=== PATIENT | female | born 1940 | race Caucasian/White ===

== ENCOUNTER 2019-08-12 05:00 | Day surgery (SDC) | payer OTHER ==
[~2019-08-12 05:00] MED LIST: HYZAAR 100-251 EACH PO
== END 2019-08-12 16:35 | disposition home or self-care (01) ==
LOC: CIR.AMB 05:00
DX: N84.0 Polyp of corpus uteri (principal); D25.0 Submucous leiomyoma of uterus

== ENCOUNTER 2023-01-15 11:30 | Emergency (ER) | payer OTHER ==
[~2023-01-15] VITALS: Ht 152.4 cm; Wt 68.0 kg
[2023-01-15] MEDS ORDERED: FOSAMAX70 MG PO (12:20)
[2023-01-15] MEDS ORDERED: ESCITALOPRAM OXA5 MG PO (12:20)
[2023-01-15] MEDS ORDERED: IRBESARTAN150 MG PO (12:20)
[2023-01-15] MEDS ORDERED: ATORVASTATIN CA20 MG PO (12:20)
[2023-01-15] MEDS ORDERED: LORAZEPAM1 MG PO (12:20)
[2023-01-15] MEDS ORDERED: PROPRANOLOL HCL10 MG PO (12:21)
[2023-01-15] MEDS ORDERED: SEROQUEL50 MG PO (12:21)
[2023-01-15] MEDS ORDERED: MECLIZINE HCL25 MG PO (15:39)
== END 2023-01-15 15:48 | disposition home or self-care (01) ==
LOC: ER 11:30
DX: R42 Dizziness and giddiness (principal); E78.00 Pure hypercholesterolemia, unspecified; I10 Essential (primary) hypertension; F32.A Depression, unspecified; Z91.018 Allergy to other foods